=== PATIENT | male | born 1995 | race Caucasian/White ===

== ENCOUNTER 2019-11-07 16:32 | Emergency (ER) | payer BC, SELFPAY ==
[2019-11-07 16:38] VITALS: BP 129/70; PULSE 95; RESP 20; TEMP 37.2; O2SAT 97
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
== END 2019-11-07 17:40 | disposition home or self-care (01) ==
LOC: ER 18:22
PROVIDERS: Emergency Provider Physician Assistant
DX: S81.012A Laceration without foreign body, left knee, initial encounter (principal); W22.8XXA Striking against or struck by other objects, initial encounter; Y93.55 Activity, bike riding
CPT/HCPCS: 12002; 90471